=== PATIENT | male | born 1950 | race Caucasian/White ===

== ENCOUNTER → 2016-08-07 | Outpatient (CLI) | payer MEDICARE, OTHER ==
[~2016-08-07] MED LIST: CELEBREX PO; DARVON PO; LISINOPRIL PO; NEXIUM10 MG/Pack PO; NEXIUM40 MG PO; TRICOR134 MG PO
== END ==
LOC: COL.RAD 10:23
DX: N27.0 Small kidney, unilateral (principal); R79.89 Other specified abnormal findings of blood chemistry

== ENCOUNTER → 2017-01-20 | Outpatient (CLI) | payer MEDICARE, OTHER | LOC: COL.VAS 12:59 | DX: I50.9 Heart failure, unspecified (principal); I08.1 Rheumatic disorders of both mitral and tricuspid valves ==